=== PATIENT | male | born 1965 | race Caucasian/White ===

== ENCOUNTER 2016-09-17 06:51 | Day surgery (SDC) | payer MEDICAID ==
--- NOTE | 2016-09-17 07:30 | PDGENHP ---
History & Physical Chief Complaint: abd pain, constipation History of Present Illness: Abd pain and constipation, urgency also Pertinent Past, Social, Family History: polyneuropathy. no fam hx of gi disease Relevant Physical Exam: NAD. RRR. CTAB. no edema. abd soft/nt/nd/no masses
[2016-09-17] MEDS ORDERED: LR 1,000 ML IV SCH (08:00)
[2016-09-17] MEDS ORDERED: ONDANSETRON 4 MG/2 ML VIAL IVP PRN (08:16)
[2016-09-17] MEDS ORDERED: NALOXONE HCL 0.4 MG/ML INJ IVP PRN (08:16)
--- NOTE | 2016-09-17 08:16 | PDANEPAE ---
ANE History of Present Illness Patient presents for Colonoscopy ANE Past Medical History - Cardiovascular History Hx Hypertension: No Hx Arrhythmias: No Hx Chest Pain: No Hx Coronary Artery / Peripheral Vascular Disease: No Hx CHF / Valvular Disease: No Hx Palpitations: No - Pulmonary History Hx COPD: No Hx Asthma/Reactive Airway Disease: No Hx Recent Upper Respiratory Infection: No Hx Oxygen in Use at Home: No - Neurologic History Hx Cerebrovascular Accident: No Hx Seizures: No Hx Dementia: No - Endocrine History Hx Diabetes: No - Renal History Hx Renal Disorders: No - Liver History Hx Hepatic Disorders: No - Neurological & Psychiatric Hx Hx Neurological and Psychiatric Disorders: No - Cancer History Hx Cancer: No - Congenital Disorder History Hx Congenital Disorders: No - GI History Hx Gastrointestinal Disorders: Yes - Chronic Pain History Chronic Pain: Yes (GENERALIZED ACHING) ANE Review of Systems - Exercise capacity METS (RN): 4 METS ANE Patient History - Allergies Allergies/Adverse Reactions: No Known Allergies Allergy (Unverified 03/02/15 11:03) - Home Medications Home Medications: Herbals/Supplements -Info Only 09/14/16 [Last Taken 09/15/16] Prednisone 09/14/16 [Last Taken 09/15/16] - NPO status NPO Since - Liquids (Date): 09/16/16 NPO Since - Liquids (Time): 21:00 NPO Since - Solids (Date): 09/16/16 NPO Since - Solids (Time): 05:30 - Smoking Hx Smoking Status: Current every day smoker - Family Anes Hx Family Hx Anesthesia Complications: ADOPTED ANE Labs/Vital Signs - Vital Signs Blood Pressure: 127/76 Heart Rate: 60 Respiratory Rate: 14 O2 Sat (%): 95 Height: 177.8 cm Weight: 83.915 kg ANE Physical Exam - Airway Neck exam: FROM Mallampati Score: Class 1 - Pulmonary Pulmonary: no respiratory distress - Cardiovascular Cardiovascular: regular rate and rhythym - ASA Status ASA Status: II ANE Anesthesia Plan Anesthesia Plan: GA with mask (rba discussed)
[2016-09-17] MEDS ORDERED: PROPOFOL/EMULSION 500 MG/50 ML BOTTLE IV ONE (08:23)
--- NOTE | 2016-09-17 09:08 | POSTOPPROG ---
Post Op Note Date of Operation: 09/17/16 Surgeon: Dayron Bennett Anesthesia: Other (Specify) (per anesthesia) Pre-op Diagnosis: constipation, abd pain Post-op Diagnosis: colon polyps Indication: constipation, abd pain Procedure: Colonoscopy with polypectomy Findings: Colon polyp x 1 hep flexure, x3 desc/sig/rectum cold snare, x 1 sig cold bx Inf/Abcess present in the surg proc area at time of surgery?: No Complications: none
--- NOTE | 2016-09-17 09:22 | POSTANESTH ---
Post Anesthetic Evaluation Cardiovascular Status: Normal, Stable Respiratory Status: Normal, Stable Level of Consciousness/Mental Status: Can Participate in Eval Pain Control: Adequate, Prn Tx Ordered Nausea/Vomiting Control: Adequate, Prn Tx Ordered
[2016-09-17 10:38] VITALS: PULSE 66; RESP 14; TEMP 97.5
[2016-09-17 11:29] VITALS: BP 118/77; O2SAT 99
--- NOTE | 2016-09-17 13:58 | GPN ---
[f rep st] PROCEDURE NOTE DATE OF PROCEDURE: 09/17/2016 PROCEDURE: Colonoscopy with polypectomy. INDICATIONS: Change in bowel habits, constipation, abdominal discomfort. CONSENT: Informed consent was obtained from the patient after a thorough explanation of risks, benefits, and alternatives to the procedure. MEDICATIONS GIVEN: Per Anesthesia. ANESTHESIA: Per Anesthesia. ESTIMATED BLOOD LOSS: None. COMPLICATIONS: None. DESCRIPTION OF EXAMINATION: After adequate sedation was achieved, the colonoscope was advanced under direct vision through the anal orifice and as far as the appendiceal orifice and terminal ileum. Retroflexion was performed in the ascending colon and in the rectum. Findings as below. FINDINGS: 1. Terminal ileum normal. 2. Colon mucosa was normal throughout the colon. 3. 4 mm hepatic flexure polyp removed with cold snare polypectomy. Resected, retrieved, and placed into jar 1. 4. One 3 mm descending colon polyp, one 8 mm sigmoid colon polyp, and one 3 mm rectal polyp, all sessile, were all removed with cold snare polypectomy; fully resected, retrieved, and placed into jar 2. 5. A 1 mm descending colon polyp was removed with colon biopsy forceps, fully resected, retrieved, and placed into jar 2. 6. Small internal hemorrhoids were present. IMPRESSION: No findings to explain patient's gastrointestinal symptoms although multiple polyps were removed as above. RECOMMENDATIONS: 1. Resume regular diet and resume outpatient medications. 2. Await biopsy results. If 3 or more polyps are adenomas, then repeat colonoscopy will be recommended in 3 years. If 1 or 2 polyps are adenomas, repeat colonoscopy will be recommended in 5 years. 3. Follow up with Dr. Loya. If additional GI assistance is needed regarding symptoms patient may call to schedule appointment. /[id number]/MODL MTDD
== END 2016-09-17 12:00 | disposition home or self-care (01) ==
LOC: FSGY 06:51
PROVIDERS: ATTEND Internal Medicine
PROC: 0DBN8ZX Excision of Sigmoid Colon, Via Natural or Artificial Opening Endoscopic, Diagnostic (ICD-10-PCS; principal; 2016-09-17 08:30)
PROC: 0DBL8ZX Excision of Transverse Colon, Via Natural or Artificial Opening Endoscopic, Diagnostic (ICD-10-PCS; principal; 2016-09-17 08:30)
PROC: 0DBP8ZX Excision of Rectum, Via Natural or Artificial Opening Endoscopic, Diagnostic (ICD-10-PCS; principal; 2016-09-17 08:30)
PROC: 0DBM8ZX Excision of Descending Colon, Via Natural or Artificial Opening Endoscopic, Diagnostic (ICD-10-PCS; principal; 2016-09-17 08:30)
DX: D12.4 Benign neoplasm of descending colon (principal); D12.3 Benign neoplasm of transverse colon; K64.8 Other hemorrhoids
CPT/HCPCS: J2704

== ENCOUNTER 2016-10-28 18:17 | Emergency (ER) | payer MEDICAID ==
--- NOTE | 2016-10-28 18:55 | EDPHY ---
H & P Stated Complaint: dx CIDP for 2 yrs/having increasing pain/weakness/numbness/ incontinent Time Seen by Provider: 10/28/16 18:33 HPI/ROS: CHIEF COMPLAINT: Weakness HISTORY OF PRESENT ILLNESS: The patient is a 51-year-old man with a history of chronic inflammatory demyelinating poly neuropathy that he has been suffering from for several years. He is followed by Dr. Fletcher a neurologist from [facility]. Over the last several months he has been tapering off of his prednisone from 40 mg to 5 mg daily. Over the last day or 2 his symptoms have progressed to the point that he can no longer feel his feet and has trouble with balance or walking and is occasionally incontinent. Prior to this he had occasional paresthesias in his groin and perineum for the last year and half. No fevers. No recent trauma. No pain. REVIEW OF SYSTEMS: Constitutional: denies: chills, fever, recent illness, recent injury EENTM: denies: blurred vision, double vision, nose congestion Respiratory: denies: cough, shortness of breath Cardiac: denies: chest pain, irregular heart rate, lightheadedness, palpitations Gastrointestinal/Abdominal: denies: abdominal pain, diarrhea, nausea, vomiting, blood streaked stools Genitourinary: denies: dysuria, frequency, hematuria, pain Musculoskeletal: See HPI Skin: denies: lesions, rash, jaundice, bruising Neurological: See HPI Hematologic/Lymphatic: denies: blood clots, easy bleeding, easy bruising Immunologic/allergic: denies: HIV/AIDS, transplant EXAM: GENERAL: Well-appearing, well-nourished and in no acute distress. HEAD: Atraumatic, normocephalic. EYES: Pupils equal round and reactive to light, extraocular movements intact, sclera anicteric, conjunctiva are normal. ENT: TMs normal, nares patent, oropharynx clear without exudates. Moist mucous membranes. NECK: Normal range of motion, supple without lymphadenopathy or JVD. LUNGS: Breath sounds clear to auscultation bilaterally and equal. No wheezes rales or rhonchi. HEART: Regular rate and rhythm without murmurs, rubs or gallops. ABDOMEN: Soft, nontender, normoactive bowel sounds. No guarding, no rebound. No masses appreciated. BACK: No CVA tenderness, no spinal tenderness, step-offs or deformities EXTREMITIES: Normal range of motion, no pitting or edema. No clubbing or cyanosis. NEUROLOGICAL: Cranial nerves II through XII grossly intact. Normal speech, normal gait. 4/5 strength in ankles and feet, normal strength proximally, normal movement in all extremities, decreased sensation in feet but normal in legs. He states that "I can't feel my cock and I think it may have pooped the bed " PSYCH: Normal mood, normal affect. SKIN: Warm, dry, normal turgor, no visible rashes or lesions. Source: Patient Exam Limitations: No limitations - Personal History Current Tetanus/Diphtheria Vaccine: Yes - Medical/Surgical History Hx Asthma: No Hx Chronic Respiratory Disease: No Hx Diabetes: No Hx Cardiac Disease: No Hx Renal Disease: No Hx Cirrhosis: No Hx Alcoholism: No Hx HIV/AIDS: No Hx Splenectomy or Spleen Trauma: No Other PMH: CIDP/BACK ISSUES(seen by dr ayoub and bre) - Family History Significant Family History: No pertinent family hx - Social History Smoking Status: Current every day smoker Alcohol Use: Sober Drug Use: None Constitutional: Initial Vital Signs Temperature (C) 36.7 C 10/28/16 18:22 Heart Rate 86 10/28/16 18:22 Respiratory Rate 20 10/28/16 18:22 Blood Pressure 139/113 H 10/28/16 18:22 O2 Sat (%) 18 L 10/28/16 18:22 O2 Delivery Mode Room Air Allergies/Adverse Reactions: No Known Allergies Allergy (Verified 10/28/16 18:22) Home Medications: Medication Instructions Recorded Herbals/Supplements -Info Only 09/14/16 Prednisone 09/14/16 Medical Decision Making ED Course/Re-evaluation: 7:00 p.m. I discussed the case with Dr. Anaya who is the neurologist operations plant attendant at [facility]. She accepted the patient in transfer. She recommends a dose of Solu-Medrol. She does not recommend imaging at this time and will do it there on arrival. The patient is in agreement with this. Differential Diagnosis: Partial list of the Differential diagnosis considered include but were not limited to; poly neuropathy, diskitis, Guillain-[place] and although unlikely based on the history and physical exam, I also considered trauma, hematoma, ischemia, abscess. I discussed these differential diagnoses and the plan with the patient as well as the usual and expected course. The patient understands that the diagnosis is provisional and that in medicine we are not always correct and that further workup is often warranted. Usual and customary warnings were given. All of the patient's questions were answered. The patient was instructed to return to the emergency department should the symptoms at all worsen or return, otherwise to followup with the physician as we discussed. Critical Care Time: I spent a total of 35 minutes of critical care time in obtaining history, performing a physical exam, bedside monitoring of interventions, collecting and interpreting tests and discussion with consultants but not including time spent performing procedures [and exclusive of the PA's time]. - Data Points Laboratory Results: Laboratory Results 10/28/16 18:40 10/28/16 18:40 Medications Given: Discontinued Medications Methylprednisolone Sodium Succinate (Solu-Medrol) 125 mg IVP EDNOW ONE Stop: 10/28/16 19:06 Last Admin: 10/28/16 19:42 Dose: 125 mg Departure - Departure Disposition: Acute Care Hospital [facility] Clinical Impression: Polyneuropathy Condition: Fair Referrals: Malcolm Ron MD [Primary Care Provider] - As per Instructions
[2016-10-28] MEDS ORDERED: methylPREDNISolone SOD SUCC 125 MG/2 ML VIAL IVP ONE (19:05)
[2016-10-28 19:17] LABS: % IMMATURE GRANULYOCYTES 0.2 % (0.0-1.1); ABSOLUTE IMMATURE GRANULOCYTES 0.01 10^3/uL (0.00-0.10); ADD DIFF? NO; ADD MORPH? NO; ADD SCAN? NO; ATYPICAL LYMPHOCYTE FLAG 10 (0-99); FRAGMENT RBC FLAG 0 (0-99); HEMATOCRIT 46.3 % (40.0-51.0); HEMOGLOBIN 15.9 g/dL (13.7-17.5); LEFT SHIFT FLG 0 (0-99); LIPEMIA HEMOLYSIS FLAG 90 (0-99); MEAN CELL HEMOGLOBIN 33.7 pg (27.9-34.1); MEAN CELL HEMOGLOBIN CONCENTR. 34.3 g/dL (32.4-36.7); MEAN CELL VOLUME 98.1 fL (81.5-99.8); MEAN PLATELET VOLUME 9.6 fL (8.7-11.7); PLATELET CLUMPS FLAG 10 (0-99); PLATELET COUNT 204 10^3/uL (150-400); RED BLOOD CELL COUNT 4.72 10^6/uL (4.40-6.38); RED CELL DISTRIBUTION WIDTH 12.8 % (11.5-15.2)
[2016-10-28 19:37] LABS: ANION GAP 15 mEq/L (8-16); CALCIUM 9.2 mg/dL (8.5-10.4); CARBON DIOXIDE 19 mEq/l (22-31); CHLORIDE 104 mEq/L (97-110); CREATININE 1.1 mg/dL (0.7-1.3); GLOMERULAR FILTRATION RATE > 60; GLUCOSE 110 mg/dL (70-100); POTASSIUM 3.4 mEq/L (3.5-5.2); SODIUM 138 mEq/L (134-144)
[2016-10-28 20:17] VITALS: BP 101/61; PULSE 68; RESP 18; TEMP 99; O2SAT 95
== END 2016-10-28 20:51 | disposition short-term general hospital (02) ==
DX: G62.9 Polyneuropathy, unspecified (principal); F17.200 Nicotine dependence, unspecified, uncomplicated
CPT/HCPCS: 96374